=== PATIENT | male | born 1945 | race Caucasian/White ===

== ENCOUNTER 2018-04-27 21:40 | Emergency (ER) | payer MEDICARE, OTHER ==
--- NOTE | 2018-04-27 22:02 | ED Physician Documentation ---
PD HPI CHEST PAIN - Stated complaint Stated Complaint: CHEST PX - Chief complaint Chief Complaint: Cardiac - History obtained from History obtained from: Patient, Family - History of Present Illness Timing - onset: Today Timing - details: Gradual onset, Intermittant Quality: Pressure Location: Right chest Radiation: Back Worsened by: Eating Associated symptoms: No: Shortness of air, Diaphoresis, Nausea, Vomiting Similar symptoms before: Has not had sx before Recently seen: Not recently seen - Additional information Additional information: patient is a 73 year old male presenting to the emergency department for right sided abdominal and chest pain. patient states that the symptoms started this evening and got worse after dinner. patient reports that they are in his right upper quadrant and wraps around to his back and up into his right chest. Review of Systems Ten Systems: 10 systems reviewed and negative Constitutional: denies: Fever, Chills Cardiac: reports: Chest pain / pressure Respiratory: denies: Dyspnea, Cough GI: reports: Abdominal Pain. denies: Nausea, Vomiting, Constipation, Diarrhea : denies: Dysuria, Frequency PD PAST MEDICAL HISTORY - Past Medical History Past Medical History: Yes Cardiovascular: None Respiratory: None Neuro: None Endocrine/Autoimmune: None GI: Other : None HEENT: Chronic hearing loss Psych: None Musculoskeletal: Chronic back pain, Other Derm: Other - Past Surgical History Past Surgical History: Yes General: Other Ortho: Spine surgery, Other HEENT: Tonsil/Adenoidectomy - Present Medications Home Medications: Ambulatory Orders Medication Instructions Recorded Confirmed Ascorbic Acid [Vitamin C] 06/25/13 06/25/13 Aspirin [Aspirin EC] 06/25/13 06/25/13 Atenolol 06/25/13 06/25/13 Calcium [Calcio [place]] 400 mg PO 06/25/13 06/25/13 Multivitamin [Multi-Vitamin Daily] 06/25/13 06/25/13 Triamterene/Hydrochlorothiazid 06/25/13 06/25/13 [Dyazide 37.5-25 Capsule] - Allergies Allergies/Adverse Reactions: Allergies Allergy/AdvReac Type Severity Reaction Status Date / Time codeine [Codeine] AdvReac Intermediate Nausea Verified 04/27/18 21:59 acetaminophen [From Percocet] AdvReac Unknown Verified 04/27/18 22:28 erythromycin base AdvReac Edema Verified 04/27/18 22:28 oxycodone [From Percocet] AdvReac Hallucinati Verified 04/27/18 22:28 ons - Social History Does the pt smoke?: No Smoking Status: Never smoker Does the pt drink ETOH?: Yes Does the pt have substance abuse?: No - Immunizations Immunizations are current?: Yes - POLST Patient has POLST: No PD ED PE NORMAL - Vitals Vital signs reviewed: Yes - General General: Alert and oriented X 3, No acute distress - HEENT HEENT: Atraumatic, PERRL - Cardiac Cardiac: RRR - Respiratory Respiratory: No respiratory distress - Abdomen Abdomen: Soft - Derm Derm: Normal color - Extremities Extremities: No deformity - Neuro Neuro: Alert and oriented X 3, No motor deficit, Normal speech Eye Opening: Spontaneous Motor: Obeys Commands Verbal: Oriented GCS Score: 15 PD ED PE EXPANDED - General General: Alert, No acute distress - HEENT HEENT: Dry mucous membranes - Abdomen Abdomen: Tender to palpation, RUQ (very minimal discomfort with palpation) Results - Vitals Vitals: Vital Signs - 24 hr 04/27/18 04/27/18 04/27/18 21:47 22:05 22:08 Temperature 36.1 C L Heart Rate 68 67 Respiratory 17 17 15 Rate Blood Pressure 216/90 H 193/77 H O2 Saturation 98 97 04/27/18 04/27/18 04/27/18 22:10 22:29 22:42 Temperature Heart Rate 59 L 62 Respiratory 15 15 17 Rate Blood Pressure 184/76 H O2 Saturation 97 96 95 04/27/18 23:05 Temperature Heart Rate Respiratory 17 Rate Blood Pressure 184/81 H O2 Saturation Oxygen O2 Source Room air - EKG (time done) 2151 Rate: Rate (enter#) (61) Rhythm: NSR [place]: Normal Intervals: Normal NC QRS: Normal, Poor R wave progression Ischemia: Normal ST segments Compare to prior EKG: Old EKG unavailable - Labs Labs: Laboratory Tests 04/27/18 04/27/18 04/27/18 21:45 21:45 21:45 WBC 8.3 RBC 5.01 Hgb 14.8 Hct 42.4 MCV 84.6 MCH 29.5 MCHC 34.8 RDW 13.3 Plt Count 179 MPV 8.7 Neut # (Auto) 4.4 Lymph # (Auto) 2.8 [place] # (Auto) 0.7 Eos # (Auto) 0.4 Baso # (Auto) 0.0 Absolute Nucleated RBC 0.01 Nucleated RBC % 0.1 Sodium 134 L Potassium 3.8 Chloride 94 L Carbon Dioxide 30 Anion Gap 10.0 BUN 21 H Creatinine 0.9 Estimated GFR (MDRD) 83 L Glucose 127 H Calcium 9.8 Total Bilirubin 0.4 AST 34 ALT 28 Alkaline Phosphatase 93 Troponin I < 0.04 B-Natriuretic Peptide Total Protein 7.9 Albumin 4.6 Globulin 3.3 Albumin/Globulin Ratio 1.4 Lipase 40 04/27/18 21:45 WBC RBC Hgb Hct MCV MCH MCHC RDW Plt Count MPV Neut # (Auto) Lymph # (Auto) [place] # (Auto) Eos # (Auto) Baso # (Auto) Absolute Nucleated RBC Nucleated RBC % Sodium Potassium Chloride Carbon Dioxide Anion Gap BUN Creatinine Estimated GFR (MDRD) Glucose Calcium Total Bilirubin AST ALT Alkaline Phosphatase Troponin I B-Natriuretic Peptide 58 Total Protein Albumin Globulin Albumin/Globulin Ratio Lipase - Rads (name of study) chest x-ray Radiology: Final report received (hypoinflation, elevated left stefan-diaphragm) PD MEDICAL DECISION MAKING - ED course Complexity details: reviewed old records, reviewed results, re-evaluated patient, considered differential, d/w patient, d/w family ED course: Patient was seen and examined at bedside. ekg was performed and showed normal sinus. labs were drawn. chest x-ray was performed and showed no acute findings. Patient stated that he did not need any pain medication. patient's symptoms sounded like biliary colic and imaging was offered but patient stated that he would rather do it outpatient. Patient had no fever or leukocytosis and out patient follow up was not inappropriate. Patient required no further work up and was stable for discharge with outpatient follow up. - Sepsis Event Vital Signs: Vital Signs - 24 hr 04/27/18 04/27/18 04/27/18 21:47 22:05 22:08 Temperature 36.1 C L Heart Rate 68 67 Respiratory 17 17 15 Rate Blood Pressure 216/90 H 193/77 H O2 Saturation 98 97 04/27/18 04/27/18 04/27/18 22:10 22:29 22:42 Temperature Heart Rate 59 L 62 Respiratory 15 15 17 Rate Blood Pressure 184/76 H O2 Saturation 97 96 95 04/27/18 23:05 Temperature Heart Rate Respiratory 17 Rate Blood Pressure 184/81 H O2 Saturation Oxygen O2 Source Room air Departure - Departure Disposition: 01 Home, Self Care Clinical Impression: Abdominal pain Condition: Good Instructions: ED Abdominal Pain Unkn Cause Follow-Up: Aston Robbins MD [Provider Admit Priv/Credential] - Comments: Your diagnostics today were within normal limits. There is good possibility that it is your gallbladder. You should refrain from any fried foods, fast foods, fatty foods ect. You should follow up with your doctor or dr. calzada for further evaluation. you should return to the emergency department for fevers, chills, vomiting, new or worsening symptoms.
[2018-04-27 22:10] LABS: BASOPHILS % (AUTO) 0.5 %; EOSINOPHILS # (AUTO) 0.4 10^3/uL (0.0-0.7); EOSINOPHILS % (AUTO) 4.4 %; HGB - HEMOGLOBIN 14.8 g/dL (14.0-18.0); LYMPHOCYTES # (AUTO) 2.8 10^3/uL (1.5-3.5); LYMPHOCYTES % (AUTO) 33.8 %; MEAN CORPUSCULAR HEMOGLOBIN 29.5 pg (27.0-31.0); MEAN CORPUSCULAR HGB CONC 34.8 g/dL (32.0-36.0); MEAN CORPUSCULAR VOLUME 84.6 fL (80.0-94.0); MEAN PLATELET VOLUME 8.7 fL (7.4-11.4); MONOCYTES # (AUTO) 0.7 10^3/uL (0.0-1.0); MONOCYTES % (AUTO) 7.9 %; NEUTROPHILS # (AUTO) 4.4 10^3/uL (1.5-6.6); NEUTROPHILS % (AUTO) 53.4 %; PLT - PLATELET COUNT 179 10^3/uL (130-450); RED BLOOD COUNT 5.01 10^6/uL (4.70-6.10); RED CELL DISTRIBUTION WIDTH 13.3 % (12.0-15.0); WHITE BLOOD COUNT 8.3 x10^3/uL (4.8-10.8)
[2018-04-27 22:18] LABS: ALBUMIN 4.6 g/dL (3.2-5.5); ALBUMIN/GLOBULIN RATIO 1.4 (1.0-2.2); BILIRUBIN,TOTAL 0.4 mg/dL (0.2-1.0); CALCIUM 9.8 mg/dL (8.5-10.3); CREATININE 0.9 mg/dL (0.6-1.2); TOTAL PROTEIN 7.9 g/dL (6.7-8.2)
--- NOTE | 2018-04-27 22:19 | XRAY Report ---
Reason: right sided chest pain Procedure Date: 04/27/2018 Accession Number: [id number] / [id number] Procedure: XR - Chest 1 View X-Ray CPT Code: 84032 FULL RESULT: EXAM: CHEST RADIOGRAPHY EXAM DATE: 04/27/2018 10:10 PM. CLINICAL HISTORY: Right sided chest pain. COMPARISON: None. TECHNIQUE: 1 view. FINDINGS: Lungs/Pleura: Hypoinflated lungs, with elevated left hemidiaphragm. No focal opacities evident. No pleural effusion. No pneumothorax. Mediastinum: Within exam limitations, the cardiomediastinal contour is normal. Other: No bony abnormalities identified. IMPRESSION: Hypoinflated lungs with elevated left hemidiaphragm, otherwise unremarkable single view chest radiography. [facility]
[2018-04-27] MEDS ORDERED: SODIUM CHLORIDE 0.9% 1,000 ML IV ONE (22:23)
[2018-04-27 23:25] LABS: BILIRUBIN,URINE NEGATIVE (NEGATIVE); GLUCOSE, URINE (UA) NEGATIVE (NEGATIVE); KETONES,URINE (UA) NEGATIVE (NEGATIVE); LEUKOCYTE ESTERASE, URINE NEGATIVE (NEGATIVE); NITRITE,URINE NEGATIVE (NEGATIVE); OCCULT BLOOD,URINE NEGATIVE (NEGATIVE); PROTEIN,URINE NEGATIVE (NEGATIVE); UROBILINOGEN,URINE 0.2 (NORMAL) E.U./dL (NORMAL)
[2018-04-27 23:30] VITALS: BP 151/84
[2018-04-27 23:32] LABS: CLARITY,URINE CLEAR (CLEAR)
== END 2018-04-27 23:50 | disposition home or self-care (01) ==
LOC: ED 21:40
DX: R10.9 Unspecified abdominal pain (principal)
CPT/HCPCS: 36415; 71045; 80053; 81001; 81003; 83690; 83880; 84484; 85025; 87086; 93005; 96360; 99284

== ENCOUNTER 2019-09-09 11:32 | Day surgery (SDC) | payer MEDICARE, OTHER ==
[2019-09-09] MEDS ORDERED: LACTATED RINGERS 1,000 ML IV ONE (11:39)
[2019-09-09] MEDS ORDERED: fentaNYL 250 MCG/5 ML VIAL IVP ONE (13:21)
[2019-09-09] MEDS ORDERED: MIDAZOLAM 2 MG/2 ML VIAL IVP ONE (13:21)
[2019-09-09 14:09] VITALS: BP 153/81
== END 2019-09-09 11:33 | disposition home or self-care (01) ==
LOC: SDS 11:32
PROVIDERS: ATTEND Surgery
PROC: 0DJD8ZZ Inspection of Lower Intestinal Tract, Via Natural or Artificial Opening Endoscopic (ICD-10-PCS; principal; 2019-09-09 13:00)
DX: K62.5 Hemorrhage of anus and rectum (principal); Z85.048 Personal history of other malignant neoplasm of rectum, rectosigmoid junction, and anus; I10 Essential (primary) hypertension; Z79.82 Long term (current) use of aspirin; Z80.0 Family history of malignant neoplasm of digestive organs
CPT/HCPCS: 45378; J3010; J7120